=== PATIENT | female | born 1985 | race African-American/Black ===

== ENCOUNTER → 2021-02-02 | Outpatient (CLI) | payer OTHER ==
--- NOTE | 2021-02-02 11:42 | REP ---
INDICATION: LOW BACK PAIN COMPARISON: None. TECHNIQUE: AP, lateral, and swimmers views. FINDINGS: Alignment and kyphosis is maintained. Vertebral bodies intact. No acute fracture / compression injury or subluxation. No degenerative changes. Paravertebral soft tissues are normal. IMPRESSION: Normal thoracic spine series. <Electronically signed by Nando Noriega > 02/02/21 [id number]
--- NOTE | 2021-02-02 11:43 | REP ---
INDICATION: LOW BACK PAIN COMPARISON: None. TECHNIQUE: AP, lateral, bilateral oblique, and coned-down views of the lumbar spine. FINDINGS: Alignment and lordosis maintained. Vertebral bodies are intact. No acute fracture/compression injury or subluxation. Disc spaces are relatively normal/age-appropriate. No obvious spondylolysis or spondylolisthesis. IMPRESSION: Normal age-appropriate lumbosacral Spine series. <Electronically signed by Nando Noriega > 02/02/21 [id number]
--- NOTE | 2021-02-02 11:44 | REP ---
INDICATION: LOW BACK PAIN COMPARISON: None. TECHNIQUE: AP, lateral, and open-mouth views of the cervical spine. FINDINGS: Mild reversal of normal lordosis is nonspecific. Alignment is otherwise maintained. Vertebral bodies and disc spaces along with posterior elements and spinous processes are intact and essentially age-appropriate. No evidence for acute or healed injury.. IMPRESSION: Essentially normal age-appropriate cervical spine radiographs. <Electronically signed by Nando Noriega > 02/02/21 [id number]
== END ==
LOC: M PLAIMG 10:27
PROVIDERS: ATTEND Physician Assistant
DX: M54.5 Low back pain (principal); M54.2 Cervicalgia